=== PATIENT | female | born 1985 | race Caucasian/White ===

== ENCOUNTER 2016-06-03 11:53 | Inpatient (IN) | payer OTHER ==
[~2016-06-03] VITALS: Ht 152.4 cm; Wt 62.6 kg
[~2016-06-03 11:53] MED LIST: FOLI1TAB15 PO; PREN1TAB80 PO
[2016-06-03] MEDS ORDERED: OXYTOCIN 30 UNITS/LACT RINGERS 500 ML IV ONE (14:29)
[2016-06-03] MEDS ORDERED: RINGERS SOLUTION,LACTATED 1,000 ML IV PRN (14:29)
[2016-06-03] MEDS ORDERED: CITRIC ACID/SODIUM CITRATE 30 ML SOLUTION UDCUP PO PRN (14:30)
[2016-06-03] MEDS ORDERED: DINOPROSTONE 10 MG VAGINAL SUPPOSITORY VG ONE (14:30)
[2016-06-03] MEDS ORDERED: METOCLOPRAMIDE HCL 5 MG/ML 2 ML VIAL IVP PRN (14:30)
[2016-06-03 14:52] VITALS: BP 111/69
[2016-06-03 14:58] LABS: BASOPHILS % (AUTO) 0.4 % (0.0-2.0); EOSINOPHILS % (AUTO) 1.1 % (1.0-6.0); HEMATOCRIT 41.6 % (36-46); HEMOGLOBIN 13.7 g/dL (12.0-16.0); LYMPHOCYTES # (AUTO) 1.5 K/uL (1.0-4.8); LYMPHOCYTES % (AUTO) 13.8 % (22.0-44.0); MEAN CORPUSCULAR HEMOGLOBIN 29.9 pg (26.0-34.0); MEAN CORPUSCULAR HGB CONC 32.9 G/dL (31.0-37.0); MEAN CORPUSCULAR VOLUME 91 fL (80-100); MONOCYTES # (AUTO) 0.9 K/uL (0.1-1.0); NEUTROPHILS # (AUTO) 8.1 K/uL (1.8-7.7); NEUTROPHILS % (AUTO) 76.7 % (40.0-70.0); RED BLOOD CELL COUNT(AUTO) 4.59 MIL/uL (4.00-5.20); RED CELL DISTRIBUTION WIDTH 13.5 % (11.5-14.5); WHITE BLOOD COUNT (AUTO) 10.6 K/uL (4.5-11.0)
[2016-06-03] MEDS ORDERED: INFLUENZA VIRUS VACCINE QVS 2016-17 (3YR+)/PF 60 MCG/0.5 ML SYRINGE IM ONE (15:00)
[2016-06-03] MEDS: RINGERS SOLUTION,LACTATED 1,000 ML IV SCH (18:27)
[2016-06-03] MEDS ORDERED: OXYGEN THERAPY IH SCH (20:00)
[2016-06-03] MEDS ORDERED: AMPICILLIN SODIUM 2 GM/NS 100 ML IV ONE (22:00)
[2016-06-03] MEDS: FentaNYL CITRATE-PF 100 MCG/2 ML VIAL IVP PRN ×2 (22:34→22:39)
[2016-06-04] MEDS: AMPICILLIN SODIUM 1 GM/NS 50 ML IV SCH ×5 (01:59→19:31)
[2016-06-04] MEDS: RINGERS SOLUTION,LACTATED 1,000 ML IV SCH ×3 (02:01→15:31)
[2016-06-04] MEDS: FentaNYL CITRATE-PF 100 MCG/2 ML VIAL IVP PRN ×4 (02:02→12:13)
[2016-06-04] MEDS ORDERED: OXYTOCIN 30 UNITS/LACT RINGERS 500 ML IV ONE ×3 (08:00→23:36)
[2016-06-04] MEDS ORDERED: BUPIVACAINE HCL/PF 0.25% 10 ML VIAL ONE (15:46)
[2016-06-04] MEDS ORDERED: FentaNYL/BUPIV 0.125%/NS/PF 200 ML ED ONE (15:47)
[2016-06-04] MEDS ORDERED: MAGNESIUM HYDROXIDE SUSPENSION 30 ML UDCUP PO PRN (23:45)
[2016-06-04] MEDS ORDERED: GLYCERIN/WITCH HAZEL LEAF 40 PADS JAR TP PRN (23:45)
[2016-06-04] MEDS ORDERED: OxyCODONE HCL/ACETAMINOPHEN 5-325 MG TABLET PO PRN (23:45)
[2016-06-04] MEDS ORDERED: LANOLIN 7 GM OINTMENT TP PRN (23:45)
[2016-06-04] MEDS ORDERED: BENZOCAINE 20%/MENTHOL 56 GM SPRAY CANISTER TP PRN (23:45)
[2016-06-05] MEDS: RINGERS SOLUTION,LACTATED 1,000 ML IV SCH (00:05)
[2016-06-05] MEDS: IBUPROFEN 800 MG TABLET PO PRN ×4 (01:55→21:27)
[2016-06-05] MEDS: OxyCODONE HCL/ACETAMINOPHEN 5-325 MG TABLET PO PRN (03:43)
[2016-06-05 06:12] LABS: EOSINOPHILS % (AUTO) 0.1 % (1.0-6.0); HEMATOCRIT 38.8 % (36-46); HEMOGLOBIN 12.7 g/dL (12.0-16.0); LYMPHOCYTES # (AUTO) 1.7 K/uL (1.0-4.8); LYMPHOCYTES % (AUTO) 7.1 % (22.0-44.0); MEAN CORPUSCULAR HEMOGLOBIN 29.8 pg (26.0-34.0); MEAN CORPUSCULAR HGB CONC 32.8 G/dL (31.0-37.0); MEAN CORPUSCULAR VOLUME 91 fL (80-100); MONOCYTES # (AUTO) 1.9 K/uL (0.1-1.0); MONOCYTES % (AUTO) 7.8 % (2.0-9.0); NEUTROPHILS # (AUTO) 20.9 K/uL (1.8-7.7); RED BLOOD CELL COUNT(AUTO) 4.27 MIL/uL (4.00-5.20); WHITE BLOOD COUNT (AUTO) 24.6 K/uL (4.5-11.0)
[2016-06-06] MEDS: OxyCODONE HCL/ACETAMINOPHEN 5-325 MG TABLET PO PRN (05:27)
[2016-06-06] MEDS ORDERED: IBUP-2070 PO (07:40)
== END 2016-06-06 08:30 | disposition home or self-care (01) | DRG 775 ==
LOC: 4S 11:53 → OBSVTOIN 11:53
PROVIDERS: ADMIT Obstetrics & Gynecology; ATTEND Obstetrics & Gynecology
PROC: 10E0XZZ Delivery of Products of Conception, External Approach (ICD-10-PCS; principal; 2016-06-03)
PROC: 0KQM0ZZ Repair Perineum Muscle, Open Approach (ICD-10-PCS; 2016-06-03)
PROC: 3E0P7GC Introduction of Other Therapeutic Substance into Female Reproductive, Via Natural or Artificial Opening (ICD-10-PCS; 2016-06-03)
PROC: 3E0S3CZ (ICD-10-PCS; 2016-06-03)
PROC: 00HU33Z Insertion of Infusion Device into Spinal Canal, Percutaneous Approach (ICD-10-PCS; 2016-06-03)
DX: O75.89 Other specified complications of labor and delivery (principal); O70.1 Second degree perineal laceration during delivery; Z3A.39 39 weeks gestation of pregnancy; Z37.0 Single live birth
CPT/HCPCS: J0290; J2590; J3010; J3490; J7120